=== PATIENT | male | born 1950 | race African-American/Black ===

== ENCOUNTER 2017-03-14 20:13 | Emergency (ER) | payer SELFPAY ==
[~2017-03-14 20:13] MED LIST: CYCL-36 PO; IBUP800 PO; IBUP800T23 PO; ORPH100T PO; TRAM50 PO; VALT1TAB26 PO
[2017-03-14 20:20] VITALS: BP 144/75; PULSE 70; RESP 16; TEMP 98.7; O2SAT 98
--- NOTE | 2017-03-14 20:41 | PD ---
HPI Chief Complaint: Injury Time Seen by Provider: 20:28 Travel History International Travel<30 days: No Contact w/Intl Traveler<30days: No Traveled to known affect area: No History of Present Illness HPI 66-year-old male presents to the emergency room for evaluation of right shoulder pain after playing golf earlier today. Patient states he played 9 holes and when there were about 3 holes left he started developing aching right shoulder pain. Symptoms have been worsening over time. He denies any other trauma or injury. Denies paresthesias. Pain is localized to the medial shoulder and worse with certain range of motion. He has not taken anything for symptoms. Denies chronic medical conditions or daily medications. PFSH Social History Alcohol Use: No Tobacco Use: No Substance Use: No Allergies-Medications (Allergen,Severity, Reaction): Coded Allergies: No Known Allergies (Unverified , 07/16/15) Reported Meds & Prescriptions Reported Meds & Active Scripts Active Tylenol (Acetaminophen) 325 Mg Tab 650 Mg PO Q6H 7 Days Ultram (Tramadol HCl) 50 Mg Tab 50 Mg PO Q6H PRN FOR PAIN Valtrex (Valacyclovir HCl) 1 Gm Tab 1 Gm PO TID Norflex (Orphenadrine Citrate) 100 Mg Dustin 100 Mg PO BID Ibuprofen 800 Mg Tab 800 Mg PO TID Flexeril (Cyclobenzaprine HCl) 10 Mg Tab 10 Mg PO TID PRN Motrin 800 Mg Tab (Ibuprofen) 800 Mg Tab 800 Mg PO Q8H PRN Review of Systems Except as stated in HPI: all other systems reviewed are Neg Physical Exam Narrative GENERAL: Well-nourished, well-developed male in no acute distress. Afebrile. Ambulatory. SKIN: Focused skin assessment warm/dry. No erythema or ecchymosis. HEAD: Normocephalic. EYES: No scleral icterus. No injection or drainage. NECK: Supple, trachea midline. No JVD or lymphadenopathy. CARDIOVASCULAR: Regular rate and rhythm without murmurs, gallops, or rubs. MUSCULOSKELETAL: No cyanosis. No obvious edema. 2+ radial pulse. Radial, ulnar, and median nerves intact. Limited range of motion of the right shoulder secondary to pain. Extreme tenderness to palpation over the medial humeral head. Data Data Last Documented VS Vital Signs Date Time Temp Pulse Resp B/P (MAP) Pulse Ox O2 Delivery O2 Flow Rate FiO2 03/14/17 20:20 98.7 70 16 144/75 (98) 98 Orders Orders Support Splint (03/14/17 20:38) Acetamin-Hydrocod 325-5 Mg (Dulce 5-325 (03/14/17 20:45) MDM Medical Decision Making Medical Screen Exam Complete: Yes Emergency Medical Condition: Yes Medical Record Reviewed: Yes Differential Diagnosis Tendinitis, rotator cuff injury, fracture unlikely Narrative Course 66-year-old male presents to the emergency room for evaluation of nontraumatic right shoulder pain after playing golf today. Pain is worsened with certain range of motion. Improved at rest. Physical exam is reassuring. Patient does have tenderness to palpation over the medial humeral head and limited range of motion secondary to pain. Right upper extremity is neurovascularly intact with 2+ radial pulse. Radial, ulnar, and median nerves intact. This is likely overuse syndrome/tendinitis. He was given Lortab and sling for comfort and discharged with prescription for Tylenol. Patient was instructed not to use the sling for more than 2 days as this will increase his chance of adhesive capsulitis. Told to follow-up with his PCP for outpatient MRI if symptoms persist or return for worsening symptoms. He understands and agrees to plan. Diagnosis Primary Impression: Right shoulder tendinitis Referrals: Primary Care Physician Additional Instructions: Do not use sling for greater than 2 days. Take Tylenol as directed, as needed for pain. Apply ice to the affected area for 20 minutes at a time, as needed for pain and swelling. Follow-up with a primary care physician. Return to the emergency room for worsening symptoms. Med/Other Pt SpecificInfo: Prescription(s) given Scripts Acetaminophen (Tylenol) 325 Mg Tab 650 MG PO Q6H for 7 Days, #56 TAB 0 Refills Prov: Epifanio Adorno MD 03/14/17 Disposition: 01 DISCHARGE HOME Condition: Stable Dione Mittal Mar 14, 2017 20:41
[2017-03-14] MEDS ORDERED: TYLE325T PO (20:45)
[2017-03-14] MEDS ORDERED: ACETAMINOPHEN/HYDROcodone 325 MG/5 MG TAB PO ONE (20:45)
== END 2017-03-14 21:16 | disposition home or self-care (01) ==
LOC: NEPK 20:13
DX: M75.91 Shoulder lesion, unspecified, right shoulder (principal); Z79.899 Other long term (current) drug therapy
CPT/HCPCS: 99283